=== PATIENT | female | born 1955 | race Caucasian/White ===

== ENCOUNTER 2016-05-03 16:21 | Emergency (ER) | payer MEDICAID, OTHER ==
[~2016-05-03] VITALS: Ht 167.6 cm; Wt 80.0 kg
[~2016-05-03 16:21] MED LIST: BACT800T5 PO; ENOX120P SQ; HYDR-3516 PO; HYDR12.56 PO; LEVO175T2 PO; MACR100C2 PO; PHEN0.4T PO; PRAM1 PO; TOPA100T11 PO
[2016-05-03 16:25] VITALS: BP 143/74; PULSE 104; RESP 28; TEMP 98; O2SAT 96
[2016-05-03] MEDS ORDERED: SODIUM CHLORIDE 0.9% FLUSH 5 ML FLUSH IVF PRN (17:00)
--- NOTE | 2016-05-03 17:02 | PD ---
HPI Chief Complaint: Cardiac Complaint Time Seen by Provider: 16:45 Travel History International Travel<30 days: No Contact w/Intl Traveler<30days: No Traveled to known affect area: No History of Present Illness HPI The patient is a 60-year-old female who presents emergency department for shortness of breath for several days duration. The patient states she had cough and cold symptoms of started on Saturday with nasal congestion, sore throat, and a dry nonproductive cough. The patient now complains of progressing shortness of breath is worse with exertion. The patient does have a previous history of pulmonary embolism, failed oral anticoagulants, and is currently on Lovenox daily. The patient states her symptoms are slightly similar to her previous pulmonary embolism, however, states the cough is different. The patient denies any history of COPD or congestive heart failure. The patient's symptoms are worse with exertion and with coughing. The patient also complains of anterior chest pain she describes as pressure that is worse with exertion and slightly alleviated at rest. The patient denies any known history of coronary artery disease, hypertension, or hyperlipidemia. The patient's primary physician is Dr. Byrd in the patient's distribution dispatcher is Dr. Bui. PFSH Past Medical History Hx Anticoagulant Therapy: Yes (LOVENOX) Anemia: Yes (iron transfusion 2-16) Arthritis: Yes Autoimmune Disease: No Cancer: Yes (right breast 6 yrs ago=bilateral mastectomies) Cardiovascular Problems: Yes Chemotherapy: Yes (HX radiation and chemotherapy 5 years ago) Diabetes: No Diminished Hearing: No Gastrointestinal Disorders: Yes GERD: Yes Genitourinary: No Hiatal Hernia: Yes Immune Disorder: No Implanted Vascular Access Dvce: No Psychiatric: No Reproductive: No Respiratory: Yes (PE) Immunizations Current: Yes Radiation Therapy: Yes Thyroid Disease: Yes Tetanus Vaccination: < 5 Years Menopausal: Yes Para: 1 Miscarriage: 1 Tubal Ligation: Yes Past Surgical History Cholecystectomy: Yes Mastectomy: Yes (bilateral, right with lymph nodes) Pacemaker: No Other Surgery: Yes Social History Alcohol Use: No Tobacco Use: No Substance Use: No Allergies-Medications (Allergen,Severity, Reaction): Coded Allergies: Benadryl (Verified Allergy, Unknown, 05/03/16) Reported Meds & Prescriptions Reported Meds & Active Scripts Active Hydrochlorothiazide 12.5 Mg Tab 12.5 Mg PO DAILY Reported Hydrocodone-Acetaminophen 5-325 mg Tab 1 Tab PO TID PRN Mirapex (Pramipexole Dihydrochloride) 1 Mg Tab 1 Mg PO HS Topamax (Topiramate) 100 Mg Tab 100 Mg PO HS Lovenox Inj (Enoxaparin Sodium) 120 Mg/0.8 Ml Syr 120 Mg SQ DAILY Levothyroxine (Levothyroxine Sodium) 175 Mcg Tab 175 Mcg PO DAILY Review of Systems Except as stated in HPI: all other systems reviewed are Neg General / Constitutional: No: Fever HENT: Positive: Lightheadedness, Sore Throat, Congestion Cardiovascular: Positive: Chest Pain or Discomfort, Dyspnea on exertion Respiratory: Positive: Cough, Shortness of Breath Gastrointestinal: No: Nausea, Vomiting, Abdominal Pain Musculoskeletal: No: Edema Neurologic: No: Dizziness Physical Exam Narrative GENERAL: Awake, alert, pleasant 60-year-old female who appears her stated age and is in mild respiratory distress. SKIN: Warm and dry. HEAD: Atraumatic. Normocephalic. EYES: Pupils equal and round. No scleral icterus. No injection or drainage. ENT: No nasal bleeding or discharge. Mucous membranes pink and moist. NECK: Trachea midline. No JVD. CARDIOVASCULAR: Regular, tachycardic with a heart rate of 102. Breast: Bilateral mastectomy. RESPIRATORY: No accessory muscle use. Clear to auscultation. Breath sounds equal bilaterally. GASTROINTESTINAL: Abdomen soft, non-tender, nondistended. No rebound tenderness. MUSCULOSKELETAL: No obvious deformities. No clubbing. No cyanosis. No edema. NEUROLOGICAL: Awake and alert. No obvious cranial nerve deficits. Motor grossly within normal limits. Normal speech. PSYCHIATRIC: Appropriate mood and affect; insight and judgment normal. Data Data Last Documented VS Vital Signs Date Time Temp Pulse Resp B/P Pulse Ox O2 Delivery O2 Flow Rate FiO2 05/03/16 17:36 96 05/03/16 16:25 98.0 104 28 143/74 Room Air Orders Electrocardiogram (05/03/16 ) Complete Blood Count With Diff (05/03/16 16:51) Comprehensive Metabolic Panel (05/03/16 16:51) B-Type Natriuretic Peptide (05/03/16 16:51) Act Partial Throm Time (Ptt) (05/03/16 16:51) Prothrombin Time / Inr (Pt) (05/03/16 16:51) Magnesium (Mg) (05/03/16 16:51) Ckmb (Isoenzyme) Profile (05/03/16 16:51) Troponin I (05/03/16 16:51) Influenzae A/B Antigen (05/03/16 16:51) Blood Culture (05/03/16 16:51) Iv Access Insert/Monitor (05/03/16 16:51) Ecg Monitoring (05/03/16 16:51) Oximetry (05/03/16 16:51) Oxygen Administration (05/03/16 16:51) Chest, Single Ap (05/03/16 16:51) Ct Pulmonary Angiogram (05/03/16 16:51) Sodium Chloride 0.9% Flush (Ns Flush) (05/03/16 17:00) Lactic Acid (05/03/16 16:51) Aspirin Chew (Aspirin Chew) (05/03/16 17:45) Sodium Chlorid 0.9% 500 Ml Inj (Ns 500 M (05/03/16 17:45) Ondansetron Inj (Zofran Inj) (05/03/16 17:45) Acetamin-Hydrocod 325-5 Mg ([place] 5-325 (05/03/16 17:45) Iohexol 350 Inj (Omnipaque 350 Inj) (05/03/16 18:48) Albuterol-Ipratropium Neb (Duoneb Neb) (05/03/16 19:15) Lidocaine Pf 4% Neb (Lidocaine Pf 4% Neb (05/03/16 19:15) Labs Laboratory Tests Test 05/03/16 17:15 White Blood Count 8.4 TH/MM3 Red Blood Count 4.48 MIL/MM3 Hemoglobin 12.9 GM/DL Hematocrit 37.6 % Mean Corpuscular Volume 83.9 FL Mean Corpuscular Hemoglobin 28.7 PG Mean Corpuscular Hemoglobin 34.2 % Concent Red Cell Distribution Width 17.6 % Platelet Count 253 TH/MM3 Mean Platelet Volume 7.0 FL Neutrophils (%) (Auto) 70.6 % Lymphocytes (%) (Auto) 19.2 % Monocytes (%) (Auto) 7.2 % Eosinophils (%) (Auto) 2.3 % Basophils (%) (Auto) 0.7 % Neutrophils # (Auto) 5.9 TH/MM3 Lymphocytes # (Auto) 1.6 TH/MM3 Monocytes # (Auto) 0.6 TH/MM3 Eosinophils # (Auto) 0.2 TH/MM3 Basophils # (Auto) 0.1 TH/MM3 CBC Comment DIFF FINAL Differential Comment Prothrombin Time 9.7 SEC Prothromb Time International 0.9 RATIO Ratio Activated Partial 22.9 SEC Thromboplast Time Sodium Level 138 MEQ/L Potassium Level 3.9 MEQ/L Chloride Level 102 MEQ/L Carbon Dioxide Level 27.0 MEQ/L Anion Gap 9 MEQ/L Blood Urea Nitrogen 21 MG/DL Creatinine 0.77 MG/DL Estimat Glomerular Filtration 76 ML/MIN Rate Random Glucose 136 MG/DL Lactic Acid Level 0.8 mmol/L Calcium Level 9.5 MG/DL Magnesium Level 2.0 MG/DL Total Bilirubin 0.2 MG/DL Aspartate Amino Transf 24 U/L (AST/SGOT) Alanine Aminotransferase 44 U/L (ALT/SGPT) Alkaline Phosphatase 66 U/L Total Creatine Kinase 52 U/L Troponin I LESS THAN 0.02 NG/ML B-Type Natriuretic Peptide 7 PG/ML Total Protein 7.7 GM/DL Albumin 3.7 GM/DL [facility] Medical Decision Making Medical Screen Exam Complete: Yes Emergency Medical Condition: Yes Medical Record Reviewed: Yes Interpretation(s) EKG reveals normal sinus rhythm with a rate in 94. Q wave noted in lead 3. Prominent R-wave in V2. Laboratory Tests Test 05/03/16 17:15 White Blood Count 8.4 TH/MM3 Red Blood Count 4.48 MIL/MM3 Hemoglobin 12.9 GM/DL Hematocrit 37.6 % Mean Corpuscular Volume 83.9 FL Mean Corpuscular Hemoglobin 28.7 PG Mean Corpuscular Hemoglobin 34.2 % Concent Red Cell Distribution Width 17.6 % Platelet Count 253 TH/MM3 Mean Platelet Volume 7.0 FL Neutrophils (%) (Auto) 70.6 % Lymphocytes (%) (Auto) 19.2 % Monocytes (%) (Auto) 7.2 % Eosinophils (%) (Auto) 2.3 % Basophils (%) (Auto) 0.7 % Neutrophils # (Auto) 5.9 TH/MM3 Lymphocytes # (Auto) 1.6 TH/MM3 Monocytes # (Auto) 0.6 TH/MM3 Eosinophils # (Auto) 0.2 TH/MM3 Basophils # (Auto) 0.1 TH/MM3 CBC Comment DIFF FINAL Differential Comment Prothrombin Time 9.7 SEC Prothromb Time International 0.9 RATIO Ratio Activated Partial 22.9 SEC Thromboplast Time Sodium Level 138 MEQ/L Potassium Level 3.9 MEQ/L Chloride Level 102 MEQ/L Carbon Dioxide Level 27.0 MEQ/L Anion Gap 9 MEQ/L Blood Urea Nitrogen 21 MG/DL Creatinine 0.77 MG/DL Estimat Glomerular Filtration 76 ML/MIN Rate Random Glucose 136 MG/DL Lactic Acid Level 0.8 mmol/L Calcium Level 9.5 MG/DL Magnesium Level 2.0 MG/DL Total Bilirubin 0.2 MG/DL Aspartate Amino Transf 24 U/L (AST/SGOT) Alanine Aminotransferase 44 U/L (ALT/SGPT) Alkaline Phosphatase 66 U/L Total Creatine Kinase 52 U/L Troponin I LESS THAN 0.02 NG/ML B-Type Natriuretic Peptide 7 PG/ML Total Protein 7.7 GM/DL Albumin 3.7 GM/DL Last Impressions Chest X-Ray 05/03/161650 Signed Impressions: Service Date/Time: April 16:52 - CONCLUSION: 1. Large hiatal hernia. 2. No acute cardiopulmonary disease. Jcarlos Nguyen MD CT Angiography 05/03/161650 Signed Impressions: Service Date/Time: April 18:43 - CONCLUSION: Negative for central pulmonary emboli, large eventration left hemidiaphragm. Leo Salazar MD FACR Differential Diagnosis Differential diagnosis includes pneumonia, influenza, bronchitis, pulmonary embolism failed anticoagulation, congestive heart failure, pleural effusion, acute coronary syndrome. Narrative Course IV was established, labs are drawn and sent, and the patient was placed on cardiac telemetry monitoring and continuous pulse oximetry monitoring. EKG was ordered and interpreted. Chest x-ray was ordered. The patient was noted to have tachycardia with shortness of breath with history of pulmonary embolism that has failed oral anticoagulants. Therefore, CT pulmonary angiogram was ordered. Diagnosis Primary Impression: Bronchitis Additional Impression: Dyspnea Qualified Code: R06.00 - Dyspnea, unspecified type Patient Instructions: General Instructions Additional Instructions: Medications as directed. Follow-up with your primary physician. Please provide a patient a copy of her CT results, chest x-ray results, and lab results at discharge. Return if symptoms worsen or progress. Med/Other Pt SpecificInfo: Prescription(s) given Scripts Guaifenesin-Codeine Liq 100-10 Mg/5 Ml Soln10 Ml PO Q6H PRN (COUGH) #1 BOTTLE Ref 0 Prov:Ajith Pulido MD 05/03/16 Azithromycin (Zithromax Z-Lamin)250 Mg [id number] Mg PO DIRECTED #1 DSPK Ref 0 500 MG (2 tabs) day 1, then 1 tab days 2-5. Prov:Ajith Pulido MD 05/03/16 Albuterol 18 GM Inh (Ventolin Hfa 18 GM Inh)90 Mcg/Act Aer2 Puff INH Q4H PRN ( SHORTNESS OF BREATH) #1 INHALER Ref 0 Prov:Ajith Pulido MD 05/03/16 Disposition: 01 DISCHARGE HOME Condition: Stable Ajith Pulido MD May 03, 2016 17:02
--- NOTE | 2016-05-03 17:25 | RADRPT ---
EXAM DATE/TIME: 05/03/2016 16:52 [facility] COMPARISON: CT ABDOMEN & PELVIS W/O CONTRAST, March 25, 2016, 23:10. CHEST SINGLE AP, March 21, 2016, 11:3 4. INDICATIONS : Short of breath. MEDICAL HISTORY : History of PEs. SURGICAL HISTORY : None. ENCOUNTER: Initial ACUITY: 3 days PAIN SCORE: 0/10 LOCATION: Bilateral chest FINDINGS: There is a large hiatal hernia. The heart is normal. The pulmonary vascular pattern is normal. The lungs are clear. CONCLUSION: 1. Large hiatal hernia. 2. No acute cardiopulmonary disease. Jcarlos Nguyen MD on May 03, 2016 at 17:12 Board Certified Radiologist. This report was verified electronically.
[2016-05-03 17:36] VITALS: O2SAT 96
[2016-05-03 17:39] LABS: AUTOMATED NEUTROPHIL # 5.9 TH/MM3 (1.8-7.7); BASOPHIL # 0.1 TH/MM3 (0-0.2); BASOPHIL % 0.7 % (0.0-2.0); EOSINOPHIL # 0.2 TH/MM3 (0-0.4); EOSINOPHIL % 2.3 % (0.0-4.0); HEMATOCRIT 37.6 % (35.0-46.0); HEMO FLAGS DIFF FINAL; LYMPH % 19.2 % (9.0-44.0); LYMPHOCYTE # 1.6 TH/MM3 (1.0-4.8); MEAN CELL VOLUME 83.9 FL (80.0-100.0); MEAN CORPUSCULAR HEMOGLOBIN 28.7 PG (27.0-34.0); MEAN CORPUSCULAR HGB CONC 34.2 % (32.0-36.0); MONO % 7.2 % (0.0-8.0); NEUT % 70.6 % (16.0-70.0); PLATELET COUNT 253 TH/MM3 (150-450); RED BLOOD COUNT 4.48 MIL/MM3 (4.00-5.30); RED CELL DISTRIBUTION WIDTH 17.6 % (11.6-17.2); WHITE BLOOD COUNT 8.4 TH/MM3 (4.0-11.0)
[2016-05-03] MEDS ORDERED: ONDANSETRON HCL 4 MG/2 ML VIAL IV PUSH ONE (17:45)
[2016-05-03] MEDS ORDERED: SODIUM CHLORID 0.9% 500 ML INJ 500 ML IV ONE (17:45)
[2016-05-03] MEDS ORDERED: ACETAMINOPHEN/HYDROcodone 325 MG/5 MG TAB PO ONE (17:45)
[2016-05-03] MEDS ORDERED: ASPIRIN 81 MG CHEW TAB CHEW ONE (17:45)
[2016-05-03 17:48] LABS: APTT (PATIENT) 22.9 SEC (24.3-30.1); INTERNATIONAL NORMALIZED RATIO 0.9 RATIO; PROTHROMBIN TIME - PATIENT 9.7 SEC (9.8-11.6)
[2016-05-03 18:01] LABS: ANION GAP 9 MEQ/L (5-15); AST (GOT) 24 U/L (15-37); BLOOD UREA NITROGEN 21 MG/DL (7-18); CHLORIDE 102 MEQ/L (98-107); GLOMERULAR FILTRATION RATE 76 ML/MIN (>89); SODIUM (NA) 138 MEQ/L (136-145)
[2016-05-03 18:02] LABS: POTASSIUM 3.9 MEQ/L (3.5-5.1)
[2016-05-03 18:04] LABS: ALKALINE PHOSPHATASE 66 U/L (45-117); ALT (GPT) 44 U/L (10-53); TOTAL BILIRUBIN ADULT 0.2 MG/DL (0.2-1.0)
[2016-05-03 18:06] LABS: CREATINE KINASE 52 U/L (26-192)
[2016-05-03] MEDS ORDERED: IOHEXOL 350 MG/ML 10 ML VIAL (for RAD DIAG) IV ONE (18:48)
--- NOTE | 2016-05-03 18:58 | RADRPT ---
EXAM DATE/TIME: 05/03/2016 18:43 [facility] COMPARISON: CT PULMONARY ANGIOGRAM, March 10, 2016, 19:31. INDICATIONS : Shortness of breath and chest heaviness. IV CONTRAST: 74 cc Omnipaque 350 (iohexol) IV RADIATION DOSE: 23.09 CTDIvol (mGy) MEDICAL HISTORY : Cardiovascular disease. Carcinoma, breast. SURGICAL HISTORY : Mastectomy, bilateral. Tubal ligation. ENCOUNTER: Initial ACUITY: 2 days PAIN SCALE: 4/10 LOCATION: chest TECHNIQUE: Volumetric scanning of the chest was performed using a pulmonary embolism protocol MIP images were re constructed. Using automated exposure control and adjustment of the mA and/or kV according to patien t size, radiation dose was kept as low as reasonably achievable to obtain optimal diagnostic quality images. FINDINGS: PULMONARY ARTERIES: No filling defects are seen in the pulmonary arteries through the segmental level. LUNGS: There is no consolidation or pneumothorax . No concerning pulmonary nodule is visualized. PLEURAE: There is no pleural thickening or pleural effusion. MEDIASTINUM: There is good visualization of the great vessels of the middle mediastinum. No evidence of mediastin al or hilar adenopathy/mass. MUSCULOSKELETAL: Within normal limits for patient age. MISCELLANEOUS: Large eventration left hemidiaphragm. CONCLUSION: Negative for central pulmonary emboli, large eventration left hemidiaphragm. Leo Salazar MD FACR on May 03, 2016 at 18:55 Board Certified Radiologist. This report was verified electronically.
[2016-05-03] MEDS ORDERED: RESP: LIDOCAINE HCL 4% PF 5 ML NEB NEB ONE (19:15)
[2016-05-03] MEDS ORDERED: RESP: ALBUTEROL 2.5 MG/IPRATROPIUM 0.5 MG NEB (SCH) NEB ONE (19:15)
[2016-05-03] MEDS ORDERED: VENTAER INH (19:51)
[2016-05-03] MEDS ORDERED: GUAI100S5 PO (19:51)
[2016-05-03] MEDS ORDERED: ZITHTAB PO (19:51)
--- NOTE | 2016-05-04 18:50 | EKG ---
Date Performed: 05/03/2016 Time Performed: 16:47:17 PTAGE: 60 years EKG: Sinus rhythm POSSIBLE LEFT ATRIAL ENLARGEMENT POSSIBLE RIGHT VENTRICULAR CONDUCTION DELAY POSSIBLE INFERIOR MYOCA RDIAL INFARCTION BORDERLINE ECG PREVIOUS TRACING : 03/16/2016 17.30 Since previous tracing, no significant change noted DOCTOR: Leia Meyers Interpretating Date/Time 05/04/2016 18:49:21
[2016-05-29] MEDS ORDERED: LEVO175T2 PO ×2 (15:28→15:29)
[2016-06-05] MEDS ORDERED: PANT40TA3 PO (10:28)
[2016-06-05] MEDS ORDERED: PRED50 PO (10:39)
[2016-06-05] MEDS ORDERED: AZIT500T2 PO (10:39)
[2016-06-05] MEDS ORDERED: VENTAER INH (10:40)
[2016-06-15] MEDS ORDERED: ALBUAER3 INH (09:59)
[2016-06-15] MEDS ORDERED: AUGM875T PO (10:10)
[2016-07-04] MEDS ORDERED: CARB6.5S5 EACH EAR (10:02)
[2016-08-20] MEDS ORDERED: TOPA100T11 PO (15:41)
[2016-09-20] MEDS ORDERED: AUGM875T PO (19:07)
[2016-09-20] MEDS ORDERED: TYLETAB34 PO (19:07)
[2016-09-20] MEDS ORDERED: LIDO1SOL8 SWISH-SWAL (19:07)
[2016-09-24] MEDS ORDERED: LEVO175T2 PO (13:07)
== END 2016-05-03 20:29 | disposition home or self-care (01) ==
LOC: NEPA 16:21
DX: J40 Bronchitis, not specified as acute or chronic (principal); R06.00 Dyspnea, unspecified; R94.31 Abnormal electrocardiogram [ECG] [EKG]; K44.9 Diaphragmatic hernia without obstruction or gangrene; D64.9 Anemia, unspecified; K21.9 Gastro-esophageal reflux disease without esophagitis; E07.9 Disorder of thyroid, unspecified; Z79.01 Long term (current) use of anticoagulants; Z85.3 Personal history of malignant neoplasm of breast
CPT/HCPCS: 71010; 71275; 80053; 82550; 83605; 83735; 83880; 84484; 85025; 85610; 85730; 87040; 87804; 93005; 94664; 96374; 96375; 99284; J2405; J7040; Q9967

== ENCOUNTER 2016-05-28 15:05 | Emergency (ER) | payer OTHER ==
[~2016-05-28] VITALS: Ht 165.1 cm; Wt 82.0 kg
[~2016-05-28 15:05] MED LIST changes: -BACT800T5 PO; +GUAI100S5 PO; -MACR100C2 PO; -PHEN0.4T PO; +VENTAER INH; +ZITHTAB PO
[2016-05-28 15:09] VITALS: BP 159/80; PULSE 94; RESP 14; TEMP 98.1; O2SAT 99
[2016-05-28] MEDS ORDERED: SODIUM CHLOR 0.9% 1000 ML INJ 1,000 ML IV SCH (17:16)
--- NOTE | 2016-05-28 17:18 | PD ---
HPI Chief Complaint: Respiratory Distress Time Seen by Provider: 17:18 Travel History International Travel<30 days: No Contact w/Intl Traveler<30days: No Traveled to known affect area: No History of Present Illness HPI 60-year-old female with a history of PE, DVT, iron deficiency anemia presents to the emergency department for evaluation of shortness of breath, cough and leg pain. The patient states that she's had ongoing aching pain in bilateral legs for several weeks but states that yesterday pain in her right upper leg significantly worsened. Patient is concerned she may have a blood clot because she had similar symptoms last time. She states that last night she also began to have shortness of breath and chest pressure. Patient is concerned she may have a blood clot in her lungs as well, reports similar symptoms in the past. She is currently anticoagulated on Lovenox due to failed outpatient oral anticoagulation. She denies any fever, chills, nausea, vomiting, lightheadedness, dizziness, abdominal pain. No other complaints. PFSH Past Medical History Hx Anticoagulant Therapy: Yes Anemia: Yes (iron transfusion 16) Arthritis: Yes Autoimmune Disease: No Cancer: Yes (right breast 6 yrs ago=bilateral mastectomies) Cardiovascular Problems: Yes Chemotherapy: Yes (HX radiation and chemotherapy 5 years ago) Diabetes: No Diminished Hearing: No Gastrointestinal Disorders: Yes GERD: Yes Genitourinary: No Hiatal Hernia: Yes Immune Disorder: No Implanted Vascular Access Dvce: No Psychiatric: No Reproductive: No Respiratory: Yes (PE) Immunizations Current: Yes Radiation Therapy: Yes Thyroid Disease: Yes Menopausal: Yes Para: 1 Miscarriage: 1 Tubal Ligation: Yes Past Surgical History Cholecystectomy: Yes Mastectomy: Yes (bilateral, right with lymph nodes) Pacemaker: No Other Surgery: Yes Social History Alcohol Use: No Tobacco Use: No Substance Use: No Allergies-Medications (Allergen,Severity, Reaction): Coded Allergies: Benadryl (Verified Allergy, Severe, Swelling, 05/28/16) PT STATES TONGUE SWELLING. Reported Meds & Prescriptions Reported Meds & Active Scripts Active Guaifenesin-Codeine Liq 100-10 Mg/5 Ml Soln 10 Ml PO Q6H PRN Zithromax Z-Lamin (Azithromycin) 250 Mg Dspk 250 Mg PO DIRECTED 500 MG (2 tabs) day 1, then 1 tab days 2-5. Ventolin Hfa 18 GM Inh (Albuterol Sulfate) 90 Mcg/Act Aer 2 Puff INH Q4H PRN Hydrochlorothiazide 12.5 Mg Tab 12.5 Mg PO DAILY Reported Hydrocodone-Acetaminophen 5-325 mg Tab 1 Tab PO TID PRN Mirapex (Pramipexole Dihydrochloride) 1 Mg Tab 1 Mg PO HS Topamax (Topiramate) 100 Mg Tab 100 Mg PO HS Lovenox Inj (Enoxaparin Sodium) 120 Mg/0.8 Ml Syr 120 Mg SQ DAILY Levothyroxine (Levothyroxine Sodium) 175 Mcg Tab 175 Mcg PO DAILY Review of Systems Except as stated in HPI: all other systems reviewed are Neg Physical Exam Narrative GENERAL: Well-nourished and well-developed pleasant patient in no acute distress who is nontoxic appearing. SKIN: Warm and dry. HEAD: Normocephalic and atraumatic. EYES: No injection, drainage, or hyphema noted. PERRLA. EOMI. ENT: No nasal drainage noted. Oropharynx is clear. NECK: Supple and the trachea is midline. CARDIOVASCULAR: Regular rate and rhythm. RESPIRATORY: Breath sounds are equal bilaterally with no accessory muscle use, wheezing, rhonchi, or crackles. Speaking in full sentences without difficulty. GASTROINTESTINAL: Abdomen is soft, non-tender, and nondistended. MUSCULOSKELETAL: Mild tenderness to palpation of right upper anterior thigh. No obvious deformities, swelling, cyanosis, or ecchymosis is present throughout the upper and lower extremities. Patient has full range of motion without any signs of neurovascular compromise. NEUROLOGICAL: Awake, alert, and oriented. Normal speech and gait. Cranial nerves are grossly intact. Data Data Last Documented VS Vital Signs Date Time Temp Pulse Resp B/P Pulse Ox O2 Delivery O2 Flow Rate FiO2 05/28/16 15:09 98.1 94 14 159/80 99 Room Air Orders Electrocardiogram (05/28/16 ) Basic Metabolic Panel (Bmp) (05/28/16 17:16) Ckmb (Isoenzyme) Profile (05/28/16 17:16) Complete Blood Count With Diff (05/28/16 17:16) Magnesium (Mg) (05/28/16 17:16) Prothrombin Time / Inr (Pt) (05/28/16 17:16) Act Partial Throm Time (Ptt) (05/28/16 17:16) Troponin I (05/28/16 17:16) Chest, Single Ap (05/28/16 17:16) Ecg Monitoring (05/28/16 17:16) Iv Access Insert/Monitor (05/28/16 17:16) Oximetry (05/28/16 17:16) Sodium Chloride 0.9% Flush (Ns Flush) (05/28/16 17:30) Ct Pulmonary Angiogram (05/28/16 17:16) Sodium Chlor 0.9% 1000 Ml Inj (Ns 1000 M (05/28/16 17:16) Us Leg Venous Doppler Bilat (05/28/16 ) Iohexol 350 Inj (Omnipaque 350 Inj) (05/28/16 19:25) Acetaminophen (Tylenol) (05/28/16 20:00) Labs Laboratory Tests Test 05/28/16 17:49 White Blood Count 9.6 TH/MM3 Red Blood Count 4.15 MIL/MM3 Hemoglobin 11.2 GM/DL Hematocrit 34.3 % Mean Corpuscular Volume 82.6 FL Mean Corpuscular Hemoglobin 27.0 PG Mean Corpuscular Hemoglobin 32.7 % Concent Red Cell Distribution Width 17.5 % Platelet Count 241 TH/MM3 Mean Platelet Volume 7.0 FL Neutrophils (%) (Auto) 70.0 % Lymphocytes (%) (Auto) 18.1 % Monocytes (%) (Auto) 8.5 % Eosinophils (%) (Auto) 2.7 % Basophils (%) (Auto) 0.7 % Neutrophils # (Auto) 6.7 TH/MM3 Lymphocytes # (Auto) 1.7 TH/MM3 Monocytes # (Auto) 0.8 TH/MM3 Eosinophils # (Auto) 0.3 TH/MM3 Basophils # (Auto) 0.1 TH/MM3 CBC Comment DIFF FINAL Differential Comment Prothrombin Time 10.0 SEC Prothromb Time International 0.9 RATIO Ratio Activated Partial 21.7 SEC Thromboplast Time Sodium Level 141 MEQ/L Potassium Level 4.3 MEQ/L Chloride Level 103 MEQ/L Carbon Dioxide Level 30.0 MEQ/L Anion Gap 8 MEQ/L Blood Urea Nitrogen 19 MG/DL Creatinine 0.79 MG/DL Estimat Glomerular Filtration 74 ML/MIN Rate Random Glucose 102 MG/DL Calcium Level 9.0 MG/DL Magnesium Level 2.2 MG/DL Total Creatine Kinase 51 U/L Troponin I LESS THAN 0.02 NG/ML MDM Medical Decision Making Medical Screen Exam Complete: Yes Emergency Medical Condition: Yes Differential Diagnosis Anxiety versus PE versus DVT versus failed anticoagulation Narrative Course 60-year-old female presents to the emergency department for evaluation of right leg pain and shortness of breath. Patient is afebrile. She is initially slightly tachycardic with a heart rate of 94 bpm. She has a history of blood clots in her legs and her lungs. IV access is obtained, labs were drawn and sent. CT pulmonary angiogram and ultrasound imaging has been ordered and is pending. CBC shows mild anemia with hemoglobin 11.2, hematocrit 34.3, otherwise unremarkable. BMP is unremarkable. Troponin is less than 0.02. Coags are unremarkable. Chest x-ray is negative for any acute abnormalities. Bilateral lower extremity ultrasounds show left leg is negative for DVT and right leg has residual nonocclusive thrombus and right peroneal vein. CT pulmonary angiogram is negative for any acute abnormalities. Patient has remained stable and without complaint while here in the emergency department. She has leg pain likely secondary to her prior DVT. I do not suspect any ACS or acute chest pain syndromes. Discussed supportive care and when to return to the emergency Department. Advised follow-up with her PCP. Patient verbalizes understanding and agreement with treatment plan. I discussed the case with my attending physician Dr. Lanza who is aware of the patients history, physical examination findings, and treatment plan. Diagnosis Primary Impression: Leg pain Qualified Code: M79.604 - Pain in both lower extremities Additional Impression: Cough Referrals: Primary Care Physician Patient Instructions: Acute Cough (ED), General Instructions, Leg Pain (ED) Additional Instructions: Follow-up with your Primary Care Physician. Return to the ED for any acute worsening of symptoms. Med/Other Pt SpecificInfo: Prescription(s) given Disposition: 01 DISCHARGE HOME Condition: Stable Kendal Carrasco May 28, 2016 17:18
[2016-05-28] MEDS ORDERED: SODIUM CHLORIDE 0.9% FLUSH 5 ML FLUSH IVF PRN (17:30)
--- NOTE | 2016-05-28 17:48 | RADRPT ---
EXAM DATE/TIME: 05/28/2016 17:27 [facility] COMPARISON: CT PULMONARY ANGIOGRAM, May 03, 2016, 18:43. CHEST SINGLE AP, May 03, 2016, 16:52. INDICATIONS : Chest pain. MEDICAL HISTORY : History of PEs. SURGICAL HISTORY : Mastectomy, bilateral. ENCOUNTER: Initial ACUITY: 1 day PAIN SCORE: 5/10 LOCATION: Bilateral chest FINDINGS: There is marked eventration of the left hemidiaphragm with the stomach herniated into the chest. The right lung is clear. The heart is minimally enlarged. Pulmonary vascularity is normal. CONCLUSION: 1. There is no overt congestive failure. 2. Eventration of the diaphragm with the fundus of the stomach herniated into the left chest. Leo Salazar MD FACR on May 28, 2016 at 17:41 Board Certified Radiologist. This report was verified electronically.
[2016-05-28 18:17] LABS: AUTOMATED NEUTROPHIL # 6.7 TH/MM3 (1.8-7.7); BASOPHIL # 0.1 TH/MM3 (0-0.2); BASOPHIL % 0.7 % (0.0-2.0); EOSINOPHIL # 0.3 TH/MM3 (0-0.4); EOSINOPHIL % 2.7 % (0.0-4.0); HEMATOCRIT 34.3 % (35.0-46.0); HEMO FLAGS DIFF FINAL; LYMPH % 18.1 % (9.0-44.0); LYMPHOCYTE # 1.7 TH/MM3 (1.0-4.8); MEAN CELL VOLUME 82.6 FL (80.0-100.0); MEAN CORPUSCULAR HGB CONC 32.7 % (32.0-36.0); MONO % 8.5 % (0.0-8.0); PLATELET COUNT 241 TH/MM3 (150-450); RED BLOOD COUNT 4.15 MIL/MM3 (4.00-5.30); RED CELL DISTRIBUTION WIDTH 17.5 % (11.6-17.2); WHITE BLOOD COUNT 9.6 TH/MM3 (4.0-11.0)
[2016-05-28 18:22] LABS: APTT (PATIENT) 21.7 SEC (24.3-30.1); INTERNATIONAL NORMALIZED RATIO 0.9 RATIO
[2016-05-28 18:26] LABS: ANION GAP 8 MEQ/L (5-15); BLOOD UREA NITROGEN 19 MG/DL (7-18); CHLORIDE 103 MEQ/L (98-107); GLOMERULAR FILTRATION RATE 74 ML/MIN (>89); MAGNESIUM 2.2 MG/DL (1.5-2.5); POTASSIUM 4.3 MEQ/L (3.5-5.1); SODIUM (NA) 141 MEQ/L (136-145)
[2016-05-28 18:39] LABS: CREATINE KINASE 51 U/L (26-192)
--- NOTE | 2016-05-28 19:19 | RADRPT ---
EXAM DATE/TIME: 05/28/2016 17:53 [facility] COMPARISON: US LEG BILATERAL VENOUS DOPPLER, December 11, 2015, 3:12. INDICATIONS : Bilateral leg pain. MEDICAL HISTORY : Gastroesophageal reflux disease. Hypothyroidism. Carcinoma, breast. Anticoagulant therapy. Deep vein thrombosis. Pulmonary embolism. Hiatal hernia. . Arthritis. Anemia. Chemotherapy. Radiation therapy. Blood transfusion. SURGICAL HISTORY : Cholecystectomy.Mastectomy, bilateral. Tubal ligation. ENCOUNTER: Subsequent ACUITY: 2 months PAIN SCORE: 6/10 LOCATION: Bilateral legs. TECHNIQUE: Venous ultrasound of the left and right leg was performed from the inguinal ligament to the proximal calf. Real-time, color Doppler and spectral tracing, compression and augmentation techniques were us ed. FINDINGS: RIGHT LEG: There is normal compressibility of the deep venous system from the inguinal region to the proximal ca lf, except for residual nonocclusive thrombus in the right peroneal vein. No echogenic clot is seen in the lumen of the common femoral, femoral, popliteal, and posterior tibial veins. There is a jaime l response of the venous system to proximal and distal augmentation and respiration. LEFT LEG: There is normal compressibility of the deep venous system from the inguinal region to the proximal ca lf. No echogenic clot is seen in the lumen of the common femoral, femoral, popliteal, and posterior tibial veins. There is a normal response of the venous system to proximal and distal augmentation an d respiration. CONCLUSION: 1. Negative left lower extremity DVT study. 2. Residual nonocclusive thrombus in the right peroneal vein. Deep venous system of the right lower e xtremity otherwise unremarkable. Pedro Manzo MD on May 28, 2016 at 19:15 Board Certified Radiologist. This report was verified electronically.
[2016-05-28] MEDS ORDERED: IOHEXOL 350 MG/ML 10 ML VIAL (for RAD DIAG) IV ONE (19:25)
--- NOTE | 2016-05-28 19:47 | RADRPT ---
EXAM DATE/TIME: 05/28/2016 19:15 [facility] COMPARISON: CT PULMONARY ANGIOGRAM, March 10, 2016, 19:31. INDICATIONS : Shortness of breath and chest pain. IV CONTRAST: 60 cc Omnipaque 350 (iohexol) IV RADIATION DOSE: 19.98 CTDIvol (mGy) MEDICAL HISTORY : Cardiovascular disease. Deep venous thrombosis. Hernia, hiatal.Breast cancer. SURGICAL HISTORY : Mastectomy, right. ENCOUNTER: Initial ACUITY: 1 day PAIN SCALE: 4/10 LOCATION: chest TECHNIQUE: Volumetric scanning of the chest was performed using a pulmonary embolism protocol MIP images were re constructed. Using automated exposure control and adjustment of the mA and/or kV according to patien t size, radiation dose was kept as low as reasonably achievable to obtain optimal diagnostic quality images. FINDINGS: No filling defects to suggest pulmonary embolic disease. There is subsegmental chronic atelectasis or consolidation at the left lung base associated with large hiatal hernia, stable. Right lung relative ly clear except for minimal basilar scarring. No effusions or adenopathy. No acute findings in the up per abdomen. CONCLUSION: Negative for pulmonary embolus. Left lower lobe chronic atelectasis associated with large hiatal rizwana ia Pedro Manzo MD on May 28, 2016 at 19:41 Board Certified Radiologist. This report was verified electronically.
[2016-05-28] MEDS ORDERED: ACETAMINOPHEN 500 MG CPLT PO ONE (20:00)
[2016-05-28] MEDS ORDERED: BENZ100 PO (20:05)
[2016-05-28 20:14] VITALS: BP 132/87
[2016-05-29] MEDS ORDERED: LEVO175T2 PO ×2 (15:28→15:29)
--- NOTE | 2016-05-29 17:57 | EKG ---
Date Performed: 05/28/2016 Time Performed: 18:52:44 PTAGE: 60 years EKG: Sinus rhythm POSSIBLE RIGHT VENTRICULAR CONDUCTION DELAY Since previous tracing, no significant change noted [facility] ECG PREVIOUS TRACING : 05/03/2016 16.47.17 DOCTOR: Chan Ordonez Interpretating Date/Time 05/29/2016 17:55:40
[2016-06-05] MEDS ORDERED: PANT40TA3 PO (10:28)
[2016-06-05] MEDS ORDERED: AZIT500T2 PO (10:39)
[2016-06-05] MEDS ORDERED: PRED50 PO (10:39)
[2016-06-05] MEDS ORDERED: VENTAER INH (10:40)
[2016-06-15] MEDS ORDERED: ALBUAER3 INH (09:59)
[2016-06-15] MEDS ORDERED: AUGM875T PO (10:10)
[2016-07-04] MEDS ORDERED: CARB6.5S5 EACH EAR (10:02)
[2016-08-20] MEDS ORDERED: TOPA100T11 PO (15:41)
[2016-09-20] MEDS ORDERED: AUGM875T PO (19:07)
[2016-09-20] MEDS ORDERED: LIDO1SOL8 SWISH-SWAL (19:07)
[2016-09-20] MEDS ORDERED: TYLETAB34 PO (19:07)
[2016-09-24] MEDS ORDERED: LEVO175T2 PO (13:07)
== END 2016-05-28 20:14 | disposition home or self-care (01) ==
LOC: NETRI 15:05
DX: M79.661 Pain in right lower leg (principal); M79.662 Pain in left lower leg; R05 Cough; D50.9 Iron deficiency anemia, unspecified; R07.89 Other chest pain; R94.31 Abnormal electrocardiogram [ECG] [EKG]; Z79.01 Long term (current) use of anticoagulants; Z86.718 Personal history of other venous thrombosis and embolism; Z86.711 Personal history of pulmonary embolism
CPT/HCPCS: 71010; 71275; 80048; 82550; 83735; 84484; 85025; 85610; 85730; 93005; 93970; 99284; J7030; Q9967

== ENCOUNTER 2017-01-16 13:08 | Emergency (ER) | payer OTHER ==
[~2017-01-16 13:08] MED LIST changes: +AMOX500T PO; -GUAI100S5 PO; +PANT40TA3 PO; +TYLETAB34 PO; -VENTAER INH; -ZITHTAB PO
[2017-01-16 13:10] VITALS: BP 131/68; PULSE 93; RESP 18; TEMP 98.1; O2SAT 97
--- NOTE | 2017-01-16 13:12 | PD ---
Physical Exam Time Seen by Provider: 13:12 Narrative 61 y/o female hx of DVT in RLE, PE, on lovenox, presents with bilateral leg pain , SOB for 2 days. Vital signs reviewed. Seen at triage desk. Awaiting bed placement. Data Data Last Documented VS Vital Signs Date Time Temp Pulse Resp B/P (MAP) Pulse Ox O2 Delivery O2 Flow Rate FiO2 01/16/17 13:10 98.1 93 18 131/68 (89) 97 Room Air [facility] Medical Record Reviewed: Yes Supervised Visit with MELISSA: William Rose Jan 16, 2017 13:12
[2017-01-16] MEDS ORDERED: MORPHINE SULFATE 4 MG/ML INJ IM ONE (13:30)
[2017-01-16] MEDS ORDERED: LORazepam 2 MG/ML VIAL IM ONE (13:30)
[2017-01-16 13:57] VITALS: BP 132/65; PULSE 90; RESP 28; O2SAT 96
[2017-01-16 14:10] LABS: AUTOMATED NEUTROPHIL # 3.7 TH/MM3 (1.8-7.7); BASOPHIL % 0.6 % (0.0-2.0); EOSINOPHIL # 0.2 TH/MM3 (0-0.4); EOSINOPHIL % 2.9 % (0.0-4.0); HEMATOCRIT 35.1 % (35.0-46.0); HEMO FLAGS DIFF FINAL; LYMPH % 25.9 % (9.0-44.0); LYMPHOCYTE # 1.5 TH/MM3 (1.0-4.8); MEAN CELL VOLUME 82.9 FL (80.0-100.0); MEAN CORPUSCULAR HEMOGLOBIN 28.4 PG (27.0-34.0); MEAN CORPUSCULAR HGB CONC 34.2 % (32.0-36.0); MONO % 8.2 % (0.0-8.0); NEUT % 62.4 % (16.0-70.0); PLATELET COUNT 199 TH/MM3 (150-450); RED BLOOD COUNT 4.23 MIL/MM3 (4.00-5.30); RED CELL DISTRIBUTION WIDTH 17.2 % (11.6-17.2); WHITE BLOOD COUNT 5.9 TH/MM3 (4.0-11.0)
[2017-01-16 14:11] LABS: APTT (PATIENT) 22.3 SEC (24.3-30.1); INTERNATIONAL NORMALIZED RATIO 0.9 RATIO; PROTHROMBIN TIME - PATIENT 10.1 SEC (9.8-11.6)
[2017-01-16 14:18] LABS: BICARBONATE 22.4 MEQ/L (21.0-32.0); POTASSIUM 4.3 MEQ/L (3.5-5.1)
[2017-01-16] MEDS ORDERED: MORPHINE SULFATE 4 MG/ML INJ IV PUSH ONE ×2 (14:45)
--- NOTE | 2017-01-16 14:51 | PD ---
HPI . Bilateral lower extremity pain Chief Complaint: Cardiac Complaint Time Seen by Provider: 13:17 Travel History International Travel<30 days: No Contact w/Intl Traveler<30days: No History of Present Illness HPI This patient presents with a chief complaint of bilateral lower extremity pain which started night before last. Her pain has been severe and persistent. Pain is exacerbated by sitting and lying. It is improved with walking and heat. She reports a history of same. She states she has restless leg syndrome. She states that her restless leg syndrome gets worse when she is anemic. She further states that she has history of DVT and is on chronic Lovenox for her DVT. She states that she has been tried on oral anticoagulants but had recurrence of clot on oral anticoagulants. Therefore, she is maintained long-term on Lovenox. She states that her leg pain is so severe that it is making her feel short of breath. PFSH Past Medical History Hx Anticoagulant Therapy: Yes Anemia: Yes (iron transfusion 16) Arthritis: Yes Autoimmune Disease: No Cancer: Yes (right breast 6 yrs ago=bilateral mastectomies) Cardiovascular Problems: Yes Chemotherapy: Yes (HX radiation and chemotherapy 5 years ago) Diabetes: No Patient Takes Glucophage: No Diminished Hearing: No Endocrine: Yes Gastrointestinal Disorders: Yes GERD: Yes Genitourinary: No Hiatal Hernia: Yes Immune Disorder: No Implanted Vascular Access Dvce: No Psychiatric: No Reproductive: No Respiratory: Yes (PE) Immunizations Current: Yes Radiation Therapy: Yes Thyroid Disease: Yes Tetanus Vaccination: < 5 Years Influenza Vaccination: Yes ?: Not Menopausal: Yes Para: 1 Miscarriage: 1 Tubal Ligation: Yes Past Surgical History Cholecystectomy: Yes Mastectomy: Yes (bilateral, right with lymph nodes) Pacemaker: No Other Surgery: Yes Social History Alcohol Use: No Tobacco Use: No Substance Use: No Allergies-Medications (Allergen,Severity, Reaction): Coded Allergies: diphenhydramine (Unverified Allergy, Severe, Swelling, 01/16/17) PT STATES TONGUE SWELLING. morphine (Verified Adverse Reaction, Mild, Nausea/Vomiting, 01/16/17) Reported Meds & Prescriptions Reported Meds & Active Scripts Active Levothyroxine (Levothyroxine Sodium) 175 Mcg Tab 175 Mcg PO DAILY Topamax (Topiramate) 100 Mg Tab 100 Mg PO HS Reported Hydrochlorothiazide 12.5 Mg Tab 12.5 Mg PO DAILY Pantoprazole (Pantoprazole Sodium) 40 Mg Tab 40 Mg PO BID Hydrocodone-Acetaminophen 5-325 mg Tab 1 Tab PO TID PRN Mirapex (Pramipexole Dihydrochloride) 1 Mg Tab 1 Mg PO HS Lovenox Inj (Enoxaparin Sodium) 120 Mg/0.8 Ml Syr 120 Mg SQ DAILY Review of Systems Respiratory: Positive: Shortness of Breath Musculoskeletal: Positive: Arthralgias Psychiatric: Positive: Anxiety Physical Exam Narrative GENERAL: History on it. Female. She is tearful. SKIN: warm/dry. Her skin has normal temperature and color. HEAD: Normocephalic. Atraumatic. EYES: Pupils equal and round. No scleral icterus. No injection or drainage. ENT: No nasal bleeding or discharge. Mucous membranes pink and moist. NECK: Trachea midline. Full range of motion without pain.. CARDIOVASCULAR: Regular rate and rhythm. Heart sounds normal. RESPIRATORY: No accessory muscle use. Clear to auscultation. Breath sounds equal bilaterally. GASTROINTESTINAL: Abdomen soft. Nontender. Bowel sounds present. Nondistended. MUSCULOSKELETAL: No obvious deformities. Diffuse lower extremity tenderness. NEUROLOGICAL: Awake and alert. No obvious cranial nerve deficits. Motor grossly within normal limits. Normal speech. PSYCHIATRIC: Appropriate mood and affect; insight and judgment normal. Data Data Last Documented VS Vital Signs Date Time Temp Pulse Resp B/P (MAP) Pulse Ox O2 Delivery O2 Flow Rate FiO2 01/16/17 13:57 90 28 132/65 (87) 96 Room Air 01/16/17 13:10 98.1 Orders Orders Lorazepam Inj (Ativan Inj) (01/16/17 13:30) Morphine Inj (Morphine Inj) (01/16/17 13:30) Us Leg Venous Doppler Bilat (01/16/17 13:25) Ct Pulmonary Angiogram (01/16/17 13:25) Complete Blood Count With Diff (01/16/17 13:25) Prothrombin Time / Inr (Pt) (01/16/17 13:25) Act Partial Throm Time (Ptt) (01/16/17 13:25) Basic Metabolic Panel (Bmp) (01/16/17 13:25) Morphine Inj (Morphine Inj) (01/16/17 14:45) Morphine Inj (Morphine Inj) (01/16/17 14:45) Iohexol 350 Inj (Omnipaque 350 Inj) (01/16/17 15:02) Labs Laboratory Tests Test 01/16/17 13:30 White Blood Count 5.9 TH/MM3 Red Blood Count 4.23 MIL/MM3 Hemoglobin 12.0 GM/DL Hematocrit 35.1 % Mean Corpuscular Volume 82.9 FL Mean Corpuscular Hemoglobin 28.4 PG Mean Corpuscular Hemoglobin Concent 34.2 % Red Cell Distribution Width 17.2 % Platelet Count 199 TH/MM3 Mean Platelet Volume 7.7 FL Neutrophils (%) (Auto) 62.4 % Lymphocytes (%) (Auto) 25.9 % Monocytes (%) (Auto) 8.2 % Eosinophils (%) (Auto) 2.9 % Basophils (%) (Auto) 0.6 % Neutrophils # (Auto) 3.7 TH/MM3 Lymphocytes # (Auto) 1.5 TH/MM3 Monocytes # (Auto) 0.5 TH/MM3 Eosinophils # (Auto) 0.2 TH/MM3 Basophils # (Auto) 0.0 TH/MM3 CBC Comment DIFF FINAL Differential Comment Prothrombin Time 10.1 SEC Prothromb Time International Ratio 0.9 RATIO Activated Partial Thromboplast Time 22.3 SEC Blood Urea Nitrogen 19 MG/DL Creatinine 0.63 MG/DL Random Glucose 111 MG/DL Calcium Level 8.5 MG/DL Sodium Level 138 MEQ/L Potassium Level 4.3 MEQ/L Chloride Level 109 MEQ/L Carbon Dioxide Level 22.4 MEQ/L Anion Gap 7 MEQ/L Estimat Glomerular Filtration Rate 95 ML/MIN MDM Medical Decision Making Medical Screen Exam Complete: Yes Emergency Medical Condition: Yes Interpretation(s) EKG shows a normal sinus rhythm with no acute ischemic changes. Differential Diagnosis Differential diagnosis of leg pain includes but is not limited to lumbar radiculopathy, arthritis, myalgias, DVT. Differential diagnosis of dyspnea includes but is not limited to congestive heart failure, pneumonia, wheezing, pneumothorax, pulmonary embolism Narrative Course Patient presents with bilateral lower extremity pain. She reports previous similar episodes related to anemia. She also has a history of DVTs. In addition, she is complaining with shortness of breath. Bilateral leg ultrasounds are pending as is a CT for PE. Routine blood work has been drawn including a CBC to check her blood count. Her pain has been treated with morphine and her obvious anxiety has been treated with Ativan. She continues to complain with significant pain following morphine, 4 mg IV. CBC & BMP Diagram 01/16/17 13:30 Calcium Level 8.5 Coags are normal. Last Impressions Lower Extremity Ultrasound 01/16/17 1325 Signed Impressions: Service Date/Time: Monday, January 16, 2017 13:53 - CONCLUSION: Stable thrombus right posterior tibial vein; negative for deep venous stenosis above the knee. Leo Salazar MD FACR CT for PE>>Minimal chronic left lower lobe changes are noted with a large hiatal hernia. There are no central pulmonary emboli. There is no pericardial effusion. Portion of the liver and spleen identified are free of focal defects. The history, exam, diagnostic testing, and current condition do not suggest any significant pathology to warrant further testing, continued ED treatment, admission, or surgical evaluation at this point. The patient's condition is stable and appropriate for discharge. Diagnosis Primary Impression: Bilateral lower extremity pain Additional Impression: Dyspnea Qualified Codes: R06.00 - Dyspnea, unspecified Patient Instructions: General Instructions, Leg Pain (ED) Med/Other Pt SpecificInfo: Prescription(s) given Scripts Hydrocodone-Acetaminophen ([place]) 5-325 mg Tab 1 TAB PO Q4H Y for PAIN, #12 TAB 0 Refills Prov: Vianca Saeed MD 01/16/17 Lorazepam (Ativan) 2 Mg Tab 2 MG PO Q6H Y for cramps, #15 TAB 0 Refills Prov: Vianca Saeed MD 01/16/17 Disposition: 01 DISCHARGE HOME Condition: Stable Vianca Saeed MD Jan 16, 2017 14:51
[2017-01-16] MEDS ORDERED: IOHEXOL 350 MG/ML 10 ML VIAL (for RAD DIAG) IVCONTRAST ONE (15:02)
--- NOTE | 2017-01-16 15:21 | RADRPT ---
EXAM DATE/TIME: 01/16/2017 14:52 [facility] COMPARISON: CT PULMONARY ANGIOGRAM, May 28, 2016, 19:15. INDICATIONS : Chest pain and shortness of breath. IV CONTRAST: 60 cc Omnipaque 350 (iohexol) IV RADIATION DOSE: 23.00 CTDIvol (mGy) MEDICAL HISTORY : Cardiovascular disease. Carcinoma, breast. SURGICAL HISTORY : Cholecystectomy. Hysterectomy. ENCOUNTER: Initial ACUITY: 1 day PAIN SCALE: 6/10 LOCATION: Bilateral chest TECHNIQUE: Volumetric scanning of the chest was performed using a pulmonary embolism protocol MIP images were re constructed. Using automated exposure control and adjustment of the mA and/or kV according to patien t size, radiation dose was kept as low as reasonably achievable to obtain optimal diagnostic quality images. DICOM format image data is available electronically for review and comparison. Follow-up recommendations for detected pulmonary nodules are based at a minimum on nodule size and pa tient risk factors according to Fleischner Society Guidelines. FINDINGS: Minimal chronic left lower lobe changes are noted with a large hiatal hernia. There are no central p ulmonary emboli. There is no pericardial effusion. Portion of the liver and spleen identified are f ree of focal defects. CONCLUSION: 1. Chronic atelectatic changes left base. 2. Negative for central pulmonary emboli. Leo Salazar MD FACR on January 16, 2017 at 15:10 Board Certified Radiologist. This report was verified electronically.
--- NOTE | 2017-01-16 15:24 | RADRPT ---
EXAM DATE/TIME: 01/16/2017 13:53 [facility] COMPARISON: US LEG BILATERAL VENOUS DOPPLER, May 28, 2016, 17:53. INDICATIONS : Bilateral leg pain. MEDICAL HISTORY : Carcinoma, breast. Arthritis. Hypothyroidism. Pulmonary embolism. Dyspnea. Hiat al hernia. GERD. DVT. Anemia. Blood dyscrasias. Anticoagulant therapy, Lovenox. SURGICAL HISTORY : Cholecystectomy.Hysterectomy. Tubal ligation.Breast biopsy. Radiation therapy. Chemotherapy. Blood transfusions. ENCOUNTER: Subsequent ACUITY: 2 day PAIN SCORE: 8/10 LOCATION: Bilateral leg. TECHNIQUE: Venous ultrasound of the left and right leg was performed from the inguinal ligament t o the proximal calf. Real-time, color Doppler and spectral tracing, compression and augmentation nazanin hniques were used. FINDINGS: RIGHT LEG: Minimal residual thrombus remains in the right posterior tibial vein, nonocclusive. LEFT LEG: There is normal compressibility of the deep venous system from the inguinal region to t he proximal calf. No echogenic clot is seen in the lumen of the common femoral, femoral, popliteal, and posterior tibial veins. There is a normal response of the venous system to proximal and distal a ugmentation and respiration. CONCLUSION: Stable thrombus right posterior tibial vein; negative for deep venous stenosis above the knee. Leo Salazar MD FACR on January 16, 2017 at 15:12 Board Certified Radiologist. This report was verified electronically.
[2017-01-16] MEDS ORDERED: NORC5TAB PO (16:03)
[2017-01-16] MEDS ORDERED: LORA-475 PO (16:03)
[2017-01-16] MEDS ORDERED: LORazepam 2 MG/ML VIAL IV PUSH ONE (16:15)
--- NOTE | 2017-01-17 07:59 | EKG ---
Date Performed: 01/16/2017 Time Performed: 13:50:18 PTAGE: 61 years EKG: Sinus rhythm POSSIBLE LEFT ATRIAL ENLARGEMENT LOW QRS VOLTAGE IN PRECORDIAL LEADS POSSIBLE RIGHT VENTRICULAR COND UCTION DELAY BORDERLINE ECG Since PREVIOUS TRACING , no significant change noted PREVIOUS TRACIN05/28/2016 18.52 DOCTOR: Jana Almaguer Interpretating Date/Time 01/17/2017 07:57:58
== END 2017-01-16 17:30 | disposition home or self-care (01) ==
LOC: NEPC 13:08
DX: M79.604 Pain in right leg (principal); M79.605 Pain in left leg; R06.00 Dyspnea, unspecified; R94.31 Abnormal electrocardiogram [ECG] [EKG]; D64.9 Anemia, unspecified; R06.02 Shortness of breath; Z79.01 Long term (current) use of anticoagulants
CPT/HCPCS: 71275; 80048; 85025; 85610; 85730; 93005; 93970; 96374; 96375; 96376; 99285; J2060; J2270; Q9967

== ENCOUNTER 2017-03-05 18:09 | Emergency (ER) | payer MEDICAID, OTHER ==
[~2017-03-05 18:09] MED LIST changes: -AMOX500T PO; -HYDR-3516 PO; +LORA-475 PO; +NORC5TAB PO; -PRAM1 PO; -TOPA100T11 PO; +TOPI100 PO; -TYLETAB34 PO
[2017-03-05 18:12] VITALS: BP 177/81; PULSE 101; RESP 22; TEMP 98.4; O2SAT 95
--- NOTE | 2017-03-05 19:35 | RADRPT ---
EXAM DATE/TIME: 03/05/2017 18:33 [facility] COMPARISON: CT PULMONARY ANGIOGRAM, January 16, 2017, 14:52. CHEST PA & LAT, March 16, 2016, 17:46. INDICATIONS : Mid sternal pain post infusion yesterday. MEDICAL HISTORY : Cardiovascular disease. Carcinoma, breast. SURGICAL HISTORY : Cholecystectomy. Hysterectomy. ENCOUNTER: Initial ACUITY: 2 days PAIN SCORE: 7/10 LOCATION: mid chest FINDINGS: The heart size is normal. The lungs are clear. No effusion is seen. There is a large hiatal hernia se en in the retrocardiac region. Surgical clips are seen in the right axillary region and in the right upper quadrant. There is a levocurvature of the lumbar spine. CONCLUSION: 1. No acute cardiopulmonary process. 2. Large hiatal hernia. López Mccarthy MD on March 05, 2017 at 19:32 Board Certified Radiologist. This report was verified electronically.
[2017-03-05 20:56] LABS: AUTOMATED NEUTROPHIL # 5.6 TH/MM3 (1.8-7.7); BASOPHIL # 0.1 TH/MM3 (0-0.2); BASOPHIL % 0.7 % (0.0-2.0); EOSINOPHIL # 0.2 TH/MM3 (0-0.4); EOSINOPHIL % 2.2 % (0.0-4.0); HEMATOCRIT 39.7 % (35.0-46.0); HEMO FLAGS DIFF FINAL; LYMPH % 23.2 % (9.0-44.0); MEAN CELL VOLUME 80.8 FL (80.0-100.0); MEAN CORPUSCULAR HEMOGLOBIN 26.7 PG (27.0-34.0); MONO % 8.7 % (0.0-8.0); NEUT % 65.2 % (16.0-70.0); PLATELET COUNT 258 TH/MM3 (150-450); RED BLOOD COUNT 4.92 MIL/MM3 (4.00-5.30); RED CELL DISTRIBUTION WIDTH 15.1 % (11.6-17.2); WHITE BLOOD COUNT 8.6 TH/MM3 (4.0-11.0)
[2017-03-05 21:05] LABS: APTT (PATIENT) 24.3 SEC (24.3-30.1); INTERNATIONAL NORMALIZED RATIO 0.9 RATIO; PROTHROMBIN TIME - PATIENT 9.9 SEC (9.8-11.6)
[2017-03-05 21:11] LABS: ANION GAP 9 MEQ/L (5-15); BICARBONATE 20.1 MEQ/L (21.0-32.0); BLOOD UREA NITROGEN 14 MG/DL (7-18); CHLORIDE 107 MEQ/L (98-107); GLOMERULAR FILTRATION RATE 89 ML/MIN (>89); MAGNESIUM 2.2 MG/DL (1.5-2.5); POTASSIUM 4.7 MEQ/L (3.5-5.1); SODIUM (NA) 136 MEQ/L (136-145)
[2017-03-05 21:21] LABS: CREATINE KINASE 85 U/L (26-192)
--- NOTE | 2017-03-05 21:33 | PD ---
HPI Chief Complaint: Respiratory Symptoms Time Seen by Provider: 21:30 Travel History International Travel<30 days: No Contact w/Intl Traveler<30days: No Traveled to known affect area: No History of Present Illness HPI The patient is a 61 year old female who presents to the [facility] emergency department with a history of chest pain and bilateral lower extremity pain that began at 11PM last night. She is having chills. She is unsure whether she has a fever. She did not check her temperature at home. She reports that yesterday she did begin to have a mild cough and congestion. She reports that she's also had a sore throat. The patient denies having any swelling to her legs. 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 She is on subcutaneous Lovenox daily. She did take her Lovenox earlier today. She reports that she has a factor V Leiden deficiency. She reports that she also has an iron deficiency and had an iron infusion on Saturday. She reports that she has had problems with body aches after iron infusions in the past or when her iron level was low. The patient reports that she had a tightening sensation in her chest prior to arrival. She denies having any shortness of breath. She denies having any diaphoresis. Review of systems otherwise, she denies having any neck pain, abdominal pain, vomiting, diarrhea, urinary symptoms, or neurologic symptoms. [facility] Past Medical History Narrative Medical The patient's past medical history is significant for breast cancer-6 years ago dx, chemotherapy, radiation, DVT, PE, Factor V Leiden disorder, Hypothyroidism. She denies any h/o CHF or CAD. She last had a stress test that was negative a year ago. The patient has a history of neuropathy, restless leg syndrome Hx Anticoagulant Therapy: Yes (LOVENOX) Anemia: Yes (iron transfusion 16) Arthritis: Yes Autoimmune Disease: No Cancer: Yes (right breast 6 yrs ago=bilateral mastectomies) Cardiovascular Problems: Yes Chemotherapy: Yes (HX radiation and chemotherapy 5 years ago) Diabetes: No Diminished Hearing: No Endocrine: Yes Gastrointestinal Disorders: Yes GERD: Yes Genitourinary: No Hiatal Hernia: Yes Immune Disorder: No Implanted Vascular Access Dvce: No Psychiatric: No Reproductive: No Respiratory: Yes (PE) Immunizations Current: Yes Radiation Therapy: Yes Thyroid Disease: Yes Menopausal: Yes Para: 1 Miscarriage: 1 Tubal Ligation: Yes Past Surgical History Narrative Surgical The patient's past surgical history is significant for an appendectomy, tonsillectomy, bilateral mastectomy. Cholecystectomy: Yes Mastectomy: Yes (bilateral, right with lymph nodes) Pacemaker: No Other Surgery: Yes Social History Alcohol Use: No Tobacco Use: No Substance Use: No Allergies-Medications (Allergen,Severity, Reaction): Coded Allergies: diphenhydramine (Unverified Allergy, Severe, Swelling, 01/16/17) PT STATES TONGUE SWELLING. morphine (Verified Adverse Reaction, Mild, Nausea/Vomiting, 01/16/17) Reported Meds & Prescriptions Reported Meds & Active Scripts Active Hydrocodone-Acetaminophen 5-325 mg Tab 1 Tab PO Q4H PRN Dickey (Hydrocodone-Acetaminophen) 5-325 mg Tab 1 Tab PO Q4H PRN Ativan (Lorazepam) 2 Mg Tab 2 Mg PO Q6H PRN Levothyroxine (Levothyroxine Sodium) 175 Mcg Tab 175 Mcg PO DAILY Topamax (Topiramate) 100 Mg Tab 100 Mg PO HS Reported Hydrochlorothiazide 12.5 Mg Tab 12.5 Mg PO DAILY Pantoprazole (Pantoprazole Sodium) 40 Mg Tab 40 Mg PO BID Lovenox Inj (Enoxaparin Sodium) 120 Mg/0.8 Ml Syr 120 Mg SQ DAILY Review of Systems Except as stated in HPI: all other systems reviewed are Neg General / Constitutional: Positive: Chills, No: Fever Eyes: No: Visual changes HENT: Positive: Sore Throat, Rhinorrhea, Congestion, No: Headaches Cardiovascular: Positive: Chest Pain or Discomfort (tightening sensation in her chest), No: Dyspnea on exertion Respiratory: No: Shortness of Breath Gastrointestinal: No: Nausea, Vomiting, Diarrhea, Abdominal Pain Genitourinary: No: Dysuria Musculoskeletal: Positive: Myalgias, Cramping, Pain Skin: No Rash Neurologic: No: Weakness, Focal Abnormalities, Change in Mentation, Slurred Speech, Sensory Disturbance Psychiatric: No: Depression Endocrine: No: Polydipsia Hematologic/Lymphatic: No: Easy Bruising Physical Exam Narrative General: The patient is a well-developed well-nourished female in no acute distress. Head and Neck exam: Head is normocephalic atraumatic. Eyes: EOMI, pupils are equal round and reactive to light. Nose: Midline septum with pink mucous membranes Mouth: Dentition unremarkable. Moist mucus membranes. Posterior oropharynx is not erythematous. No tonsillar hypertrophy. Uvula midline. Airway patent. Neck: No palpable lymphadenopathy. No nuchal rigidity. No thyromegaly. Cardiovascular: Regular rate and rhythm without murmurs, gallops, or rubs. Lungs: Clear to auscultation bilaterally. No wheezes, rhonchi, or rales. Abdomen: Soft, without tenderness to palpation in all 4 quadrants of the abdomen. No guarding, rebound, or rigidity. Normal bowel sounds are audible. No tenderness on palpation of McBurney's point. Extremities: No clubbing, cyanosis, or edema. 2+ pulses in all 4 extremities. No calf tenderness on palpation, Except on the right where she reports having chronic pain from her prior DVT. Back: No spinous process tenderness to palpation. No costovertebral angle tenderness to palpation. Neurologic Exam: Grossly nonfocal. Skin Exam: No rash noted. Intact skin that is warm and dry. Data Data Last Documented VS Vital Signs Date Time Temp Pulse Resp B/P (MAP) Pulse Ox O2 Delivery O2 Flow Rate FiO2 03/05/17 18:12 98.4 101 22 177/81 (113) 95 Orders Orders Electrocardiogram (03/05/17 18:16) Basic Metabolic Panel (Bmp) (03/05/17 18:16) B-Type Natriuretic Peptide (03/05/17 18:16) Ckmb (Isoenzyme) Profile (03/05/17 18:16) Complete Blood Count With Diff (03/05/17 18:16) Magnesium (Mg) (03/05/17 18:16) Prothrombin Time / Inr (Pt) (03/05/17 18:16) Act Partial Throm Time (Ptt) (03/05/17 18:16) Troponin I (03/05/17 18:16) Chest, Pa & Lat (03/05/17 18:16) Ct Pulmonary Angiogram (03/05/17 21:40) Influenzae A/B Antigen (03/05/17 21:40) Aspirin Chew (Aspirin Chew) (03/06/17 09:00) Us Leg Venous Doppler Bilat (03/05/17 21:45) Acetamin-Hydrocod 325-5 Mg (Dickey 5-325 (03/05/17 21:45) Ondansetron Inj (Zofran Inj) (03/05/17 21:45) Sodium Chlorid 0.9% 500 Ml Inj (Ns 500 M (03/05/17 21:45) Aspirin Chew (Aspirin Chew) (03/05/17 22:30) Iohexol 350 Inj (Omnipaque 350 Inj) (03/05/17 22:36) Hydromorphone Pf Inj (Dilaudid Pf Inj) (03/05/17 23:00) Labs Laboratory Tests Test 03/05/17 20:10 White Blood Count 8.6 TH/MM3 Red Blood Count 4.92 MIL/MM3 Hemoglobin 13.1 GM/DL Hematocrit 39.7 % Mean Corpuscular Volume 80.8 FL Mean Corpuscular Hemoglobin 26.7 PG Mean Corpuscular Hemoglobin Concent 33.0 % Red Cell Distribution Width 15.1 % Platelet Count 258 TH/MM3 Mean Platelet Volume 7.5 FL Neutrophils (%) (Auto) 65.2 % Lymphocytes (%) (Auto) 23.2 % Monocytes (%) (Auto) 8.7 % Eosinophils (%) (Auto) 2.2 % Basophils (%) (Auto) 0.7 % Neutrophils # (Auto) 5.6 TH/MM3 Lymphocytes # (Auto) 2.0 TH/MM3 Monocytes # (Auto) 0.7 TH/MM3 Eosinophils # (Auto) 0.2 TH/MM3 Basophils # (Auto) 0.1 TH/MM3 CBC Comment DIFF FINAL Differential Comment Prothrombin Time 9.9 SEC Prothromb Time International Ratio 0.9 RATIO Activated Partial Thromboplast Time 24.3 SEC Blood Urea Nitrogen 14 MG/DL Creatinine 0.67 MG/DL Random Glucose 92 MG/DL Calcium Level 8.5 MG/DL Magnesium Level 2.2 MG/DL Sodium Level 136 MEQ/L Potassium Level 4.7 MEQ/L Chloride Level 107 MEQ/L Carbon Dioxide Level 20.1 MEQ/L Anion Gap 9 MEQ/L Estimat Glomerular Filtration Rate 89 ML/MIN Total Creatine Kinase 85 U/L Troponin I LESS THAN 0.02 NG/ML B-Type Natriuretic Peptide 60 PG/ML MDM Medical Decision Making Medical Screen Exam Complete: Yes Emergency Medical Condition: Yes Medical Record Reviewed: Yes Interpretation(s) Last Impressions Lower Extremity Ultrasound 03/05/17 6297 Signed Impressions: Service Date/Time: Sunday, March 05, 2017 21:53 - CONCLUSION: No DVT. López Mccarthy MD CT Angiography 03/05/[id number] Signed Impressions: Service Date/Time: Sunday, March 05, 2017 22:29 - CONCLUSION: Normal examination. Toro Frazier MD Chest X-Ray 03/05/[id number] Signed Impressions: Service Date/Time: Sunday, March 05, 2017 18:33 - CONCLUSION: 1. No acute cardiopulmonary process. 2. Large hiatal hernia. López Mccarthy MD Differential Diagnosis DVT, versus PE, versus acute coronary syndrome, versus symptomatic anemia, versus restless leg syndrome, versus anxiety disorder Narrative Course During the course of the patients emergency department visit, the patients history, examination, and differential diagnosis were reviewed with the patient. The patient was placed on a satellite project site monitor with oximetry and frequent blood pressure monitoring. The patient had IV access obtained and blood work sent for analysis. An ECG was done on arrival. The patient's ECG reveals a sinus rhythm heart rate of 78, no acute ST segment elevation or depression, T waves are inverted in V1. The patient was initially provided aspirin 162 mg by mouth 1, Lortab 10 mg by mouth 1, Zofran 4 mg IV, normal saline a 500 mL bolus. The patients laboratory studies were reviewed and remarkable for a CBC that shows a white count of 8.6, hemoglobin 13.1, platelets 258 with 8.7 monocytes. Basic metabolic profile is remarkable for a CO2 20.1, troponin I less than 0.02 , CPK 85, BNP is 60, PT PTT within normal limits, influenza A and B are negative. Radiology studies were reviewed and remarkable for a chest x-ray that shows no acute cardiopulmonary disease, large hiatal hernia, ultrasound is negative for DVT and bilateral lower extremities. CTA to rule out PE shows a normal examination. The patient on reexamination reports having continued lower extremity pains. The patient was offered admission to the chest pain center for further evaluation, rule out serial cardiac enzyme protocol. The patient prefers to follow-up with her primary care doctor as an outpatient. The patient reports that she last had a stress test on approximately a year ago. The patient was given hydromorphone 0.5 mg IV. The patient reported feeling improved. The patient is resting comfortably and feels better, is alert and in no distress. The patients results and examination findings were discussed with the patient. The repeat examination is unremarkable and benign. The history, exam, diagnostic testing, and current condition do not suggest any significant pathology to warrant further testing, continued ED treatment, admission, or surgical evaluation at this point. The vital signs have been stable. The patient does not have uncontrollable pain, intractable vomiting, or other significant symptoms. The patient's condition is stable and appropriate for discharge. The patient will pursue further outpatient evaluation with a primary care physician or other designated or consulting physician as indicated in the discharge instructions. The patient expressed understanding and was agreeable with this plan. Diagnosis Primary Impression: Leg pain Qualified Codes: M79.604 - Pain in right leg; M79.605 - Pain in left leg Additional Impression: Chest pain Qualified Codes: R07.9 - Chest pain, unspecified Referrals: Primary Care Physician 2 days Patient Instructions: Chest Pain (ED), General Instructions, Leg Cramps (ED) Med/Other Pt SpecificInfo: Prescription(s) given Scripts Hydrocodone-Acetaminophen (Hydrocodone-Acetaminophen) 5-325 mg Tab 1 TAB PO Q4H Y for PAIN, #12 TAB 0 Refills Prov: Ellie Lanza MD 03/05/17 Disposition: 01 DISCHARGE HOME Condition: Stable Ellie Lanza MD Mar 05, 2017 21:33
--- NOTE | 2017-03-05 21:39 | EKG ---
Date Performed: 03/05/2017 Time Performed: 20:18:05 PTAGE: 61 years EKG: Sinus rhythm POSSIBLE LEFT ATRIAL ENLARGEMENT BORDERLINE ECG Compared to prior tracing no significant change DOCTOR: Naeem Sethi Interpretating Date/Time 03/05/2017 21:37:06
[2017-03-05] MEDS ORDERED: ACETAMINOPHEN/HYDROcodone 325 MG/5 MG TAB PO ONE (21:45)
[2017-03-05] MEDS ORDERED: SODIUM CHLORID 0.9% 500 ML INJ 500 ML IV ONE (21:45)
[2017-03-05] MEDS ORDERED: ONDANSETRON HCL 4 MG/2 ML VIAL IV PUSH ONE (21:45)
[2017-03-05] MEDS ORDERED: ASPIRIN 81 MG CHEW TAB CHEW ONE (22:30)
--- NOTE | 2017-03-05 22:30 | RADRPT ---
EXAM DATE/TIME: 03/05/2017 21:53 [facility] COMPARISON: US LEG BILATERAL VENOUS DOPPLER, January 16, 2017, 13:53. INDICATIONS : Bilateral leg pain. MEDICAL HISTORY : Gastroesophageal reflux disease. Hypothyroidism. Pleural effusion. Hernia, hiatal. Carcinoma, ri ght breast. Arthritis. Anemia. Chemotherapy. Radiation therapy. SURGICAL HISTORY : Cholecystectomy.Mastectomy, bilateral. Tubal ligation.Hysterectomy. ENCOUNTER: Subsequent ACUITY: 4 - 6 days PAIN SCORE: 6/10 LOCATION: Bilateral legs. TECHNIQUE: Venous ultrasound of the left and right leg was performed from the inguinal ligament to the proximal calf. Real-time, color Doppler and spectral tracing, compression and augmentation techniques were us ed. FINDINGS: RIGHT LEG: There is normal compressibility of the deep venous system from the inguinal region to the proximal ca lf. No echogenic clot is seen in the lumen of the common femoral, femoral, popliteal, and posterior tibial veins. There is a normal response of the venous system to proximal and distal augmentation an d respiration. LEFT LEG: There is normal compressibility of the deep venous system from the inguinal region to the proximal ca lf. No echogenic clot is seen in the lumen of the common femoral, femoral, popliteal, and posterior tibial veins. There is a normal response of the venous system to proximal and distal augmentation an d respiration. CONCLUSION: No DVT. López Mccarthy MD on March 05, 2017 at 22:27 Board Certified Radiologist. This report was verified electronically.
[2017-03-05] MEDS ORDERED: IOHEXOL 350 MG/ML 10 ML VIAL (for RAD DIAG) IVCONTRAST ONE (22:36)
--- NOTE | 2017-03-05 22:53 | RADRPT ---
EXAM DATE/TIME: 03/05/2017 22:29 [facility] COMPARISON: No previous studies available for comparison. INDICATIONS : Shortness of breath and chest pain x2 days. IV CONTRAST: 75 cc Omnipaque 350 (iohexol) IV RADIATION DOSE: 22.80 CTDIvol (mGy) MEDICAL HISTORY : Deep venous thrombosis. Hernia, hiatal. Breast cancer. Pulmonary embolism. SURGICAL HISTORY : Mastectomy, bilateral. Hysterectomy. ENCOUNTER: Initial ACUITY: 2 days PAIN SCALE: 8/10 LOCATION: chest TECHNIQUE: Volumetric scanning of the chest was performed using a pulmonary embolism protocol MIP images were re constructed. Using automated exposure control and adjustment of the mA and/or kV according to patien t size, radiation dose was kept as low as reasonably achievable to obtain optimal diagnostic quality images. DICOM format image data is available electronically for review and comparison. Follow-up recommendations for detected pulmonary nodules are based at a minimum on nodule size and pa tient risk factors according to Fleischner Society Guidelines. FINDINGS: PULMONARY ARTERIES: No filling defects are seen in the pulmonary arteries through the segmental level. LUNGS: There is no consolidation or pneumothorax . No concerning pulmonary nodule is visualized. PLEURAE: There is no pleural thickening or pleural effusion. The left hemidiaphragm is elevated with significa nt adjacent passive atelectasis unchanged MEDIASTINUM: There is good visualization of the great vessels of the middle mediastinum. No evidence of mediastin al or hilar adenopathy/mass. MUSCULOSKELETAL: Within normal limits for patient age. MISCELLANEOUS: The visualized upper abdominal organs demonstrate no acute abnormality. CONCLUSION: Normal examination. Toro Frazier MD on March 05, 2017 at 22:51 Board Certified Radiologist. This report was verified electronically.
[2017-03-05] MEDS ORDERED: HYDROmorphone HCL PF 0.5 MG/0.5 ML SYRINGE IV PUSH ONE (23:00)
[2017-03-05] MEDS ORDERED: HYDR-3516 PO (23:18)
[2017-03-06] MEDS ORDERED: ASPIRIN 81 MG CHEW TAB CHEW SCH (09:00)
== END 2017-03-06 00:41 | disposition home or self-care (01) ==
LOC: NEPE 18:09
DX: M79.605 Pain in left leg (principal); M79.604 Pain in right leg; R07.9 Chest pain, unspecified; D68.51 Activated protein C resistance; G25.81 Restless legs syndrome; Z85.3 Personal history of malignant neoplasm of breast; Z86.711 Personal history of pulmonary embolism; Z86.718 Personal history of other venous thrombosis and embolism; Z79.01 Long term (current) use of anticoagulants
CPT/HCPCS: 71020; 71275; 80048; 82550; 83735; 83880; 84484; 85025; 85610; 85730; 87804; 93005; 93970; 96361; 96374; 96375; 99285; J1170; J2405; J7040; Q9967

== ENCOUNTER 2017-06-10 12:44 | Emergency (ER) | payer MEDICAID ==
[~2017-06-10 12:44] MED LIST changes: +HYDR-3516 PO
[2017-06-10 12:46] VITALS: BP 166/70; PULSE 113; RESP 22; TEMP 98.6; O2SAT 98
--- NOTE | 2017-06-10 13:46 | RADRPT ---
EXAM DATE/TIME: 06/10/2017 13:06 [facility] COMPARISON: CT PULMONARY ANGIOGRAM, March 05, 2017, 22:29. CHEST PA & LAT, March 05, 2017, 18:33. INDICATIONS : Short of breath, coughing, chest pain and headache for 4 days MEDICAL HISTORY : Carcinoma, breast. Hiatal hernia. pulmonary embolus, factor 5 clotting disorder SURGICAL HISTORY : Mastectomy, bilateral. ENCOUNTER: Initial ACUITY: 4 - 6 days PAIN SCORE: 4/10 LOCATION: Bilateral chest FINDINGS: PA and lateral views of the chest demonstrate the lungs to be clear. No evidence of pleural effusion . There has been an increase in the size of a hiatus hernia which extends into the posterior left ch est and measures up to 10 cm in width (previously measured 8.5 cm). Both hemidiaphragms remain well delineated. The heart is normal in size. CONCLUSION: 1. Lungs are clear. 2. Increase in size of hiatus hernia and intrathoracic stomach. Kevan Arana MD on June 10, 2017 at 13:43 Board Certified Radiologist. This report was verified electronically.
[2017-06-10] MEDS ORDERED: MORPHINE SULFATE 2 MG/ML INJ IV PUSH ONE (15:30)
[2017-06-10] MEDS ORDERED: PROCHLORPERAZINE INJ 10 MG/2 ML VIAL IV PUSH ONE (15:30)
[2017-06-10] MEDS ORDERED: SODIUM CHLOR 0.9% 1000 ML INJ 1,000 ML IV ONE ×2 (15:30→17:00)
[2017-06-10 15:45] VITALS: BP 118/58; PULSE 83; RESP 18; TEMP 98.7; O2SAT 96
[2017-06-10 16:33] LABS: AUTOMATED NEUTROPHIL # 5.1 TH/MM3 (1.8-7.7); BASOPHIL # 0.1 TH/MM3 (0-0.2); BASOPHIL % 0.7 % (0.0-2.0); EOSINOPHIL # 0.2 TH/MM3 (0-0.4); EOSINOPHIL % 2.4 % (0.0-4.0); HEMATOCRIT 37.9 % (35.0-46.0); HEMOGLOBIN 12.6 GM/DL (11.6-15.3); LYMPH % 23.4 % (9.0-44.0); LYMPHOCYTE # 1.8 TH/MM3 (1.0-4.8); MEAN CELL VOLUME 83.1 FL (80.0-100.0); MEAN CORPUSCULAR HEMOGLOBIN 27.7 PG (27.0-34.0); MEAN CORPUSCULAR HGB CONC 33.3 % (32.0-36.0); MEAN PLATELET VOLUME 6.9 FL (7.0-11.0); MONO % 6.2 % (0.0-8.0); MONOCYTE # 0.5 TH/MM3 (0-0.9); NEUT % 67.3 % (16.0-70.0); PLATELET COUNT 214 TH/MM3 (150-450); RED BLOOD COUNT 4.57 MIL/MM3 (4.00-5.30); WHITE BLOOD COUNT 7.6 TH/MM3 (4.0-11.0)
[2017-06-10 16:42] LABS: INTERNATIONAL NORMALIZED RATIO 1.1 RATIO; PROTHROMBIN TIME - PATIENT 10.7 SEC (9.8-11.6)
[2017-06-10] MEDS ORDERED: HYDROmorphone HCL PF 2 MG/ML VIAL IVS ONE (17:00)
[2017-06-10 17:07] LABS: BICARBONATE 25.5 MEQ/L (21.0-32.0); BLOOD UREA NITROGEN 21 MG/DL (7-18); CALCIUM 9.1 MG/DL (8.5-10.1); CHLORIDE 111 MEQ/L (98-107); CREATININE 0.79 MG/DL (0.50-1.00); GLOMERULAR FILTRATION RATE 74 ML/MIN (>89); GLUCOSE,RANDOM 95 MG/DL (74-106); MAGNESIUM 2.1 MG/DL (1.5-2.5); SODIUM (NA) 143 MEQ/L (136-145); TROPONIN I LESS THAN 0.02 NG/ML (0.02-0.05)
[2017-06-10] MEDS ORDERED: GUAI100L2 PO (18:32)
--- NOTE | 2017-06-10 18:37 | PD ---
HPI Chief Complaint: Respiratory Symptoms Time Seen by Provider: 15:21 Travel History International Travel<30 days: No Contact w/Intl Traveler<30days: No Traveled to known affect area: No History of Present Illness HPI 51-year-old female with a history of breast cancer, migraine headache, who presents today with complaints of cough and headache. Patient states that she has had cough and congestion 4 days. She reports subjective fever. She denies any chills. She denies any production in her cough. Patient states that when she coughs she has a bad headache. She also reports decreased p.o. intake secondary to the cough. PFSH Past Medical History Hx Anticoagulant Therapy: Yes (LOVENOX) Anemia: Yes (iron transfusion 16) Arthritis: Yes Autoimmune Disease: No Cancer: Yes (right breast 6 yrs ago=bilateral mastectomies) Cardiovascular Problems: Yes Chemotherapy: Yes (HX radiation and chemotherapy 5 years ago) Diabetes: No Diminished Hearing: No Endocrine: Yes Gastrointestinal Disorders: Yes GERD: Yes Genitourinary: No Hiatal Hernia: Yes Immune Disorder: No Implanted Vascular Access Dvce: No Musculoskeletal: Yes Neurologic: Yes Psychiatric: No Reproductive: No Respiratory: Yes (PE) Immunizations Current: Yes Radiation Therapy: Yes Thyroid Disease: Yes Tetanus Vaccination: > 5 Years Influenza Vaccination: No Menopausal: Yes Para: 1 Miscarriage: 1 Tubal Ligation: Yes Past Surgical History Cholecystectomy: Yes Mastectomy: Yes (bilateral, right with lymph nodes) Pacemaker: No Other Surgery: Yes Social History Alcohol Use: No Tobacco Use: No Substance Use: No Allergies-Medications (Allergen,Severity, Reaction): Coded Allergies: diphenhydramine (Unverified Allergy, Severe, Swelling, 01/16/17) PT STATES TONGUE SWELLING. morphine (Verified Adverse Reaction, Mild, Nausea/Vomiting, 01/16/17) Reported Meds & Prescriptions Reported Meds & Active Scripts Active Hydrocodone-Acetaminophen 5-325 mg Tab 1 Tab PO Q4H PRN Brinson (Hydrocodone-Acetaminophen) 5-325 mg Tab 1 Tab PO Q4H PRN Ativan (Lorazepam) 2 Mg Tab 2 Mg PO Q6H PRN Levothyroxine (Levothyroxine Sodium) 175 Mcg Tab 175 Mcg PO DAILY Topamax (Topiramate) 100 Mg Tab 100 Mg PO HS Reported Hydrochlorothiazide 12.5 Mg Tab 12.5 Mg PO DAILY Pantoprazole (Pantoprazole Sodium) 40 Mg Tab 40 Mg PO BID Lovenox Inj (Enoxaparin Sodium) 120 Mg/0.8 Ml Syr 120 Mg SQ DAILY Review of Systems Except as stated in HPI: all other systems reviewed are Neg General / Constitutional: No: Fever, Chills HENT: Positive: Headaches, No: Lightheadedness Cardiovascular: No: Chest Pain or Discomfort, Palpitations Respiratory: Positive: Cough, Other (Congestion), No: Wheezing Gastrointestinal: No: Nausea, Vomiting Genitourinary: No: Frequency, Dysuria Musculoskeletal: No: Weakness, Pain Neurologic: No: Weakness, Dizziness, Headache Physical Exam Narrative GENERAL: Well-nourished, well-developed patient, in no acute respiratory distress. SKIN: Focused skin assessment warm/dry. HEAD: Normocephalic/atraumatic. EYES: No scleral icterus. No injection or drainage. NECK: Supple, trachea midline. CARDIOVASCULAR: Regular rate and rhythm without murmurs, gallops, or rubs. RESPIRATORY: No rales appreciated. Questionable faint rhonchi in the upper airways bilaterally. GASTROINTESTINAL: Abdomen soft, non-tender, nondistended. MUSCULOSKELETAL: No cyanosis, or edema. NEUROLOGICAL: Awake and alert. Cranial nerves II through XII intact. Motor and sensory grossly within normal limits. Five out of 5 muscle strength in all muscle groups. Normal speech. Data Data Last Documented VS Vital Signs Date Time Temp Pulse Resp B/P (MAP) Pulse Ox O2 Delivery O2 Flow Rate FiO2 06/10/17 15:45 98.7 83 18 118/58 (78) 96 Room Air Orders Orders Complete Blood Count With Diff (06/10/17 12:51) Basic Metabolic Panel (Bmp) (06/10/17 12:51) Act Partial Throm Time (Ptt) (06/10/17 12:51) Prothrombin Time / Inr (Pt) (06/10/17 12:51) Magnesium (Mg) (06/10/17 12:51) Ckmb (Isoenzyme) Profile (06/10/17 12:51) Troponin I (06/10/17 12:51) Influenzae A/B Antigen (06/10/17 12:51) Electrocardiogram (06/10/17 12:51) Chest, Pa & Lat (06/10/17 12:51) Sodium Chlor 0.9% 1000 Ml Inj (Ns 1000 M (06/10/17 15:30) Prochlorperazine Inj (Compazine Inj) (06/10/17 15:30) Morphine Inj (Morphine Inj) (06/10/17 15:30) Hydromorphone Pf Inj (Dilaudid Pf Inj) (06/10/17 17:00) Sodium Chlor 0.9% 1000 Ml Inj (Ns 1000 M (06/10/17 17:00) Labs Laboratory Tests Test 06/10/17 16:20 White Blood Count 7.6 TH/MM3 Red Blood Count 4.57 MIL/MM3 Hemoglobin 12.6 GM/DL Hematocrit 37.9 % Mean Corpuscular Volume 83.1 FL Mean Corpuscular Hemoglobin 27.7 PG Mean Corpuscular Hemoglobin Concent 33.3 % Red Cell Distribution Width 16.0 % Platelet Count 214 TH/MM3 Mean Platelet Volume 6.9 FL Neutrophils (%) (Auto) 67.3 % Lymphocytes (%) (Auto) 23.4 % Monocytes (%) (Auto) 6.2 % Eosinophils (%) (Auto) 2.4 % Basophils (%) (Auto) 0.7 % Neutrophils # (Auto) 5.1 TH/MM3 Lymphocytes # (Auto) 1.8 TH/MM3 Monocytes # (Auto) 0.5 TH/MM3 Eosinophils # (Auto) 0.2 TH/MM3 Basophils # (Auto) 0.1 TH/MM3 CBC Comment DIFF FINAL Differential Comment Prothrombin Time 10.7 SEC Prothromb Time International Ratio 1.1 RATIO Activated Partial Thromboplast Time 29.6 SEC Blood Urea Nitrogen 21 MG/DL Creatinine 0.79 MG/DL Random Glucose 95 MG/DL Calcium Level 9.1 MG/DL Magnesium Level 2.1 MG/DL Sodium Level 143 MEQ/L Potassium Level 3.9 MEQ/L Chloride Level 111 MEQ/L Carbon Dioxide Level 25.5 MEQ/L Anion Gap 7 MEQ/L Estimat Glomerular Filtration Rate 74 ML/MIN Total Creatine Kinase 98 U/L Troponin I LESS THAN 0.02 NG/ML MDM Medical Decision Making Medical Screen Exam Complete: Yes Emergency Medical Condition: Yes Differential Diagnosis Bronchitis versus influenza versus pneumonia versus migraine exacerbation Narrative Course 61-year-old female presents with cold and cough and congestion. Patient has a negative influenza. Chest x-ray shows no evidence of acute findings. The patient was complaining of headache stating worse with cough. She has been given 2 L of IV fluid. She has been given 10 mg of Compazine 1 mg of Dilaudid. She feels much improved and states her headache is gone. She will be discharged with a prescription for guaifenesin with dextromethorphan. She has been instructed to return if she does any worsening symptoms. Diagnosis Primary Impression: Viral syndrome Additional Impressions: Cephalgia History of migraine headaches History of pulmonary embolism History of factor V Leiden mutation Additional Instructions: Return if feeling worse. Drink plenty of fluids. Med/Other Pt SpecificInfo: Prescription(s) given Scripts Dextromethorphan-Guaifenesin (Guaiasorb Dm 100-10 mg/5Ml) 100 Mg-10 Mg/5 Ml Liq 5 ML PO Q8HR for cough, #50 ML Prov: Khoi Frost MD 06/10/17 Disposition: DISCHARGE HOME Condition: Stable Khoi Frost MD Jun 10, 2017 18:37
--- NOTE | 2017-06-11 18:52 | EKG ---
Date Performed: 06/10/2017 Time Performed: 13:16:33 PTAGE: 61 years EKG: Sinus rhythm NORMAL ECG Since the prior tracing, there has been no significant change PREVIOUS TRACING : 03/05/2017 20.18 DOCTOR: Jana Almaguer Interpretating Date/Time 06/11/2017 18:47:37
== END 2017-06-10 18:56 | disposition home or self-care (01) ==
LOC: NEPC 12:44
DX: B34.9 Viral infection, unspecified (principal); R51 Headache; D68.51 Activated protein C resistance; M19.90 Unspecified osteoarthritis, unspecified site; D64.9 Anemia, unspecified; K21.9 Gastro-esophageal reflux disease without esophagitis; Z86.711 Personal history of pulmonary embolism; Z85.3 Personal history of malignant neoplasm of breast; Z79.01 Long term (current) use of anticoagulants
CPT/HCPCS: 71046; 80048; 82550; 83735; 84484; 85025; 85610; 85730; 87804; 93005; 96374; 96375; 99285; J0780; J1170; J2270; J7030